=== PATIENT | male | born 1945 | race Caucasian/White ===

== ENCOUNTER 2017-02-05 06:38 | Emergency (ER) | payer OTHER ==
[~2017-02-05] VITALS: Ht 200.7 cm; Wt 105.2 kg
[2017-02-05 06:56] VITALS: BP 141/83
[2017-02-05] MEDS ORDERED: NITROGLYCERIN OINT 1 GM PACKET TP ONE ×2 (07:00→07:11)
[2017-02-05] MEDS ORDERED: HYDR12.5 PO (07:01)
[2017-02-05] MEDS ORDERED: EPLE25TA PO (07:01)
[2017-02-05] MEDS ORDERED: FLUT50DI IH (07:01)
[2017-02-05] MEDS ORDERED: FLUO30CR11 TP (07:01)
[2017-02-05] MEDS ORDERED: HYDR28.340 TOP (07:01)
[2017-02-05] MEDS ORDERED: TERA2CAP4 PO (07:01)
[2017-02-05] MEDS ORDERED: ATOR40TA29 PO (07:01)
[2017-02-05] MEDS ORDERED: LOSA50TA21 PO (07:01)
[2017-02-05] MEDS ORDERED: TRIA5PAS4 TOP (07:01)
[2017-02-05 07:02] LABS: BASOPHILS % (AUTO) 0.1 % (0.0-2.0); EOSINOPHILS # (AUTO) 0.1 K/uL (0.0-0.7); EOSINOPHILS % (AUTO) 0.7 % (0.0-7.0); HEMATOCRIT 38.9 % (40-50); HEMOGLOBIN 13.4 G/DL (14.0-18.0); LYMPHOCYTES # (AUTO) 0.8 K/UL (0.8-4.8); LYMPHOCYTES % (AUTO) 8.4 % (20.5-51.5); MEAN CORPUSCULAR HEMOGLOBIN 30.9 UUG (27.0-31.0); MEAN CORPUSCULAR HGB CONC 34 g/dL (32.0-37.0); MEAN CORPUSCULAR VOLUME 89.6 FL (82.0-92.0); MONOCYTES # (AUTO) 0.7 K/UL (0.1-1.30); MONOCYTES % (AUTO) 7.3 % (0.0-11.0); NEUTROPHILS % (AUTO) 83.5 % (38.5-71.5); PLATELET COUNT (AUTO) 105 K/UL (150-450); RED BLOOD CELL COUNT(AUTO) 4.34 MIL/UL (4.7-6.1); WHITE BLOOD COUNT (AUTO) 9.6 K/UL (4.0-11.2)
[2017-02-05 07:16] LABS: CREATININE 1.4 mg/dL (0.6-1.3); POTASSIUM 3.7 mmol/L (3.5-5.1)
[2017-02-05 07:30] LABS: BILIRUBIN,DIRECT 0.8 mg/dL (0.0-0.2); BILIRUBIN,TOTAL 1.8 mg/dL (0.2-1.0); TOTAL PROTEIN, SERUM 6.7 g/dL (6.4-8.2)
[2017-02-05 07:34] LABS: BAND % (MANUAL) 5 % (0-10); EOSINOPHILS % (MANUAL) 1 % (0-8); LYMPHOCYTES % (MANUAL) 11 % (20-40); MONOCYTES % (MANUAL) 4 % (2-10); NEUTROPHILS % (MANUAL) 79 % (42-75)
[2017-02-05] MEDS ORDERED: PANTOPRAZOLE SODIUM 40 MG TABLET.DR PO ONE ×2 (08:00→08:07)
[2017-02-05] MEDS ORDERED: AZITHROMYCIN IV 500 MG in IV DEXTROSE 5% 250 ML IV ONE (08:00)
[2017-02-05] MEDS ORDERED: AZITHROMYCIN 500 MG VIAL IV ONE (08:07)
--- NOTE | 2017-02-05 08:30 | NUR ---
[facility] called pt is going to [facility], accepting md is dr. hugo, report number is [id number]
[2017-02-05] MEDS ORDERED: ONDANSETRON 4 MG/2 ML VIAL ONE (08:45)
--- NOTE | 2017-02-05 08:59 | NUR ---
called sherice pereira and gave report at [phone]
[2017-02-05] MEDS ORDERED: ONDANSETRON 4 MG/2 ML VIAL IV ONE (09:00)
[2017-02-05] MEDS ORDERED: IV NORMAL SALINE 1000 ML BAG IV ONE (09:30)
[2017-02-05] MEDS ORDERED: ACETAMINOPHEN ES 500 MG TABLET PO ONE (09:30)
[2017-02-05] MEDS ORDERED: LEVOFLOXACIN 750 MG/D5W 150 ML PIGGYBACK IV ONE (09:30)
[2017-02-05] MEDS ORDERED: ACETAMINOPHEN ES 500 MG TABLET ONE (09:34)
[2017-02-05] MEDS ORDERED: LEVOFLOXACIN 750MG/D5W 150 ML IV ONE (09:35)
[2017-02-05 09:43] LABS: *BLOOD, URINE Trace-intact (NEGATIVE); *CLARITY,URINE CLEAR (CLEAR); *COLOR,URINE YELLOW (YELLOW); *KETONES,URINE NEGATIVE (NEGATIVE); *PROTEIN,URINE TRACE (NEGATIVE); LEUKOCYTE ESTERASE ,URINE TRACE (NEGATIVE); NITRITE, URINE NEGATIVE (NEGATIVE); UGLUCOSE NEGATIVE (NEGATIVE)
[2017-02-05 09:45] LABS: *BILIRUBIN,URIN 1+ (NEGATIVE)
[2017-02-05 09:50] LABS: BACTERIA,URINE FEW /HPF (NONE SEEN); RBC,URINE 0-3 /HPF (0-3); SQUAMOUS EPITHELIAL CELL,UR FEW /HPF (NONE SEEN)
--- NOTE | 2017-02-05 10:18 | NUR ---
called [facility] to report lactc acid 2.6
--- NOTE | 2017-02-05 12:44 | NUR ---
[facility] at bedside to transfer the pt to [facility]. pt stable.
== END 2017-02-05 12:52 | disposition short-term general hospital (02) ==
LOC: ER 06:40
DX: R07.9 Chest pain, unspecified (principal); D69.6 Thrombocytopenia, unspecified; F32.9 Major depressive disorder, single episode, unspecified; F41.9 Anxiety disorder, unspecified; I25.10 Atherosclerotic heart disease of native coronary artery without angina pectoris; E78.5 Hyperlipidemia, unspecified; Z88.1 Allergy status to other antibiotic agents; Z88.8 Allergy status to other drugs, medicaments and biological substances
CPT/HCPCS: 36415; 70030-TC; 71010; 83605; 83735; 85025; 85730; 87040; 87086; 93005; A4663; J0456; J1956; J2405; J7030; J7060